=== PATIENT | male | born 1985 | race Caucasian/White ===

== ENCOUNTER 2017-02-20 22:12 | Emergency (ER) | payer OTHER ==
[~2017-02-20] VITALS: Ht 179.3 cm; Wt 118.2 kg
[2017-02-20 22:26] VITALS: BP 147/100; PULSE 80; RESP 18; O2SAT 99
[2017-02-20 23:01] LABS: BASOPHILS % (AUTO) 0.5 % (0-3); Mean Corpuscular Hemoglobin 30.5 pg (27.0-35.0); Mean Corpuscular Volume 89.9 fL (81-100); NEUTROPHILS % (AUTO) 53.2 % (40-74); Platelet Count 276 bil/L (150-400)
[2017-02-20 23:32] LABS: Magnesium 2.2 mg/dL (1.6-2.6)
--- NOTE | 2017-02-20 23:39 | ED.REPORT ---
HPI-Dental/Mouth Prob Date of Service Feb 20, 2017 ED Provider: Minesh Hernandez MD Patient is a 31 year old male who presents to the ED complaining of left side facial swelling onset two weeks ago. Associated symptoms include mouth pain. He denies fever. The patient was started on Amoxicillin last week, which was changed to Augmentin last week and recently switched to Clindamycin. He states that his oral surgeon wants him to be put on IV antibiotics before he has surgery tomorrow. Nursing Notes Stated Complaint: FACIAL/DENTAL INFECTION Chief Complaint: Dental Nursing Notes Reviewed: Yes Allergies: Coded Allergies: Sulfa (Sulfonamide Antibiotics) (Verified Allergy, Intermediate, Rash, Itching,, 12/30/15) hydrocodone (Verified Allergy, Intermediate, Rash,Itching,, 12/30/15) ibuprofen (Verified Adverse Reaction, Intermediate, GASTRIC BLEED, 12/30/15 ) tramadol (Verified Adverse Reaction, Intermediate, GASTRIC UPSET, 12/30/15) Uncoded Allergies: BEES (Allergy, Intermediate, swelling, 12/21/12) General Time Seen by MD: 23:38 Chief Complaint Other Hx Obtained From: Patient Arrived By: Walk-in Onset Occurred: More than a week ago... Symptom Duration: Since onset Location: : Tooth upper L molar Quality: Painful Radiation: : Face Severity: Current: Moderate Recent Healthcare: Recent doctor visit Past Medical History Past Medical History Chronic left hip pain on chronic opiates for hip and back pain, oxycodone 10 mg 3 times a day Past Surgical History none reported Family History noncontributory Smoking History Unknown if Ever Smoker Social History Other Social History: Local resident Ambulatory Status Independent Review of Systems Review of Systems Note: +facial swelling Constitutional: Denies: Fever Ears / Nose / Throat: Reports: Mouth pain, Toothache Complete sys rev & neg: except as marked. Physical Exam Initial Vital Signs Vital Signs (First) Date Time Temp Pulse Resp B/P Pulse Ox O2 Delivery O2 Flow Rate FiO2 02/20/17 22:26 36.6 80 18 147/100 99 Room Air Initial VS: Reviewed ENT: Airway patent, Mucous membranes moist left upper molar carries Neck: Atraumatic, Supple no sublingual swelling no erythema General/Constitutional: Awake, Alert Head / Eyes: Normocephalic left sided facial swelling no erythema Lymphatic: No cervical adenopathy Skin: Atraumatic, Color NL, No rash, Warm, Dry Interpretation & Diagnostics Lab Results Interpretation Result Diagram: 02/20/17 2255 02/20/17 2255 Test 02/20/17 22:55 White Blood Count 8.7th/mm3 (3.8-10.1) Red Blood Count 4.75mil/mm3 (4.40-5.80) Hemoglobin 14.5g/dL (13.8-17.2) Hematocrit 42.7% (41.0-50.0) Mean Corpuscular Volume 89.9fL (81-100) Mean Corpuscular Hemoglobin 30.5pg (27.0-35.0) Mean Corpuscular Hemoglobin Concent 34.0% (32.0-37.0) Red Cell Distribution Width 12.7% (12.3-15.4) Platelet Count 276bil/L (150-400) Neutrophils (%) (Auto) 53.2% (40-74) Lymphocytes (%) (Auto) 28.1% (14-46) Monocytes (%) (Auto) 16.0% (4-12) Eosinophils (%) (Auto) 2.0% (0-5) Basophils (%) (Auto) 0.5% (0-3) Sodium Level 141mEq/L (134-144) Potassium Level 4.4mEq/L (3.5-5.2) Chloride Level 102mEq/L (97-108) Carbon Dioxide Level 28mmol/L (18-29) Blood Urea Nitrogen 13mg/dL (6-20) Creatinine 0.75mg/dL (0.76-1.27) Estimat Glomerular Filtration Rate 128mL/min (>59) Glucose Level 111mg/dL (60-99) Calcium Level 9.3mg/dL (8.5-10.1) Magnesium Level 2.2mg/dL (1.6-2.6) Total Bilirubin 0.2mg/dL (0.0-1.2) Aspartate Amino Transf (AST/SGOT) 22U/L (0-50) Alanine Aminotransferase (ALT/SGPT) 35U/L (0-44) Alkaline Phosphatase 44U/L (25-150) Total Protein 7.5g/dL (6.4-8.4) Albumin 4.2g/dL (3.4-5.0) Lipase 21U/L (13-60) Hold Gomes Top Tube Received (Received) Re-Eval/Medical Decision Med Decision/Clinical Course 31-year-old male with a dental infection. Airways intact he looks nontoxic and is afebrile. Does not have Micah's He does have some trismus. By his report he has not been responding to Augmentin and clindamycin 300 4 times a day was recently added without improvement. As noted below, his dentist recommended he come to the emergency department and was hoping that the patient could receive some IV antibiotics. After examination and discussion with the patient we gave him an IV dose of Unasyn. He has an oral surgery appointment later today. I also doubled his clindamycin from 300-600 4 times a day. Re-Evaluation/Progress : Time of Eval: 00:39 Re-Evaluation/Progress Note: IV antibiotics almost finished. Discussed plan for discharge. Patient understands and agrees to plan. All questions were addressed. Consultation : Consulted With: Surgeon Call Returned at: 23:47 Note: Consult with Dr. Treadwell, oral surgeon, who wants the patient to be started on IV antibiotics because he does not think the patient has responded well to oral antibiotics. Patient has scheduled oral surgery for tomorrow. Counseled Regarding: Diagnosis, Lab results, Need for follow-up, When/why to return to ED Discharge & Departure Primary Impression: Dental infection Disposition: Home Discharge Condition All VS Reviewed: Yes Condition: Stable Additional Instructions: Emergency department evaluation today included interview, examination and IV antibiotics at the request of your dentist. Keep your surgery appointment for tomorrow. Take 2 of your antibiotic pills (600mg) until you follow up with your oral surgeon later this am. You can try using warm compresses on your face. Return to the emergency department for fevers, chills or swelling under tongue. Referrals: OTHER,PHYSICIAN (PCP) Scribe Attestation Portions of this note were transcribed by Belem Martinez. I, Dr. Hernandez personally performed the history, physical exam and medical decision-making; I reviewed and confirmed the accuracy of the information in the transcribed note. Signed by: Marlo Schulz, 02/20/17 Minesh Hernandez MD Feb 20, 2017 23:39 Nevaeh Martinez Feb 20, 2017 23:50
[2017-02-20] MEDS ORDERED: Ampicillin-Sulbactam Inj 3,000 MG in 0.9% Sodium Chloride 100 ML IV ONE (23:50)
== END 2017-02-21 00:59 | disposition home or self-care (01) ==
LOC: SED 22:12
DX: K04.7 Periapical abscess without sinus (principal); Z88.2 Allergy status to sulfonamides; Z88.5 Allergy status to narcotic agent; Z88.6 Allergy status to analgesic agent
CPT/HCPCS: 36415; 80053; 83690; 83735; 85025; 96365; 99284; J0295